=== PATIENT | female | born 1950 | race Two or more races ===

== ENCOUNTER 2019-09-22 22:07 | Emergency (ER) | payer OTHER ==
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
[2019-09-22] MEDS ORDERED: ACETAMINOPHEN 325 MG TABLET (FP) PO ONE (22:47)
[2019-09-22 22:50] VITALS: BMI 40.3
[2019-09-22] MEDS ORDERED: ACETAMINOPHEN 325 MG TABLET (FP) ONE (22:54)
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
[2019-09-23] MEDS ORDERED: CYCLOBENZAPRINE HCL 5 MG TABLET PO ONE (00:38)
[2019-09-23] MEDS ORDERED: CYCLOBENZAPRINE HCL 10 MG TABLET (FP) ONE (00:39)
[2019-09-23 01:01] VITALS: BP 149/78; PULSE 88; TEMP 98.2
== END 2019-09-23 01:00 | disposition home or self-care (01) ==
LOC: JER 22:07
DX: Z04.1 Encounter for examination and observation following transport accident (principal); M54.5 Low back pain; R51 Headache; I48.91 Unspecified atrial fibrillation; I10 Essential (primary) hypertension; E78.5 Hyperlipidemia, unspecified; J44.9 Chronic obstructive pulmonary disease, unspecified; Z79.01 Long term (current) use of anticoagulants
CPT/HCPCS: 70450-TC; 72125-TC; 72131-TC; 99284-25